=== PATIENT | male | born 1990 | race Two or more races ===

== ENCOUNTER 2018-12-03 16:16 | Emergency (ER) | payer OTHER ==
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
[2018-12-03] MEDS ORDERED: ACETAMINOPHEN 325 MG TABLET PO STA (20:17)
[2018-12-03] MEDS ORDERED: IBUPROFEN 800 MG TABLET PO STA (20:17)
[2018-12-03 20:59] VITALS: BP 128/71
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
== END 2018-12-03 20:59 | disposition home or self-care (01) ==
LOC: ED 16:16
DX: S39.012A Strain of muscle, fascia and tendon of lower back, initial encounter (principal); V43.52XA Car driver injured in collision with other type car in traffic accident, initial encounter; W22.11XA Striking against or struck by driver side automobile airbag, initial encounter; Y92.410 Unspecified street and highway as the place of occurrence of the external cause
CPT/HCPCS: 72100; 99283; A9270

== ENCOUNTER 2020-12-16 19:42 | Emergency (ER) | payer OTHER ==
[2020-12-16 19:55] VITALS: BP 106/66
[2020-12-16] MEDS ORDERED: BACITRACIN ZINC OINT 1 PACKET TOP STA (21:38)
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
== END 2020-12-16 22:41 | disposition home or self-care (01) ==
LOC: ED 19:42
DX: S40.812A Abrasion of left upper arm, initial encounter (principal); S80.212A Abrasion, left knee, initial encounter; S80.211A Abrasion, right knee, initial encounter; W18.30XA Fall on same level, unspecified, initial encounter; Y93.51 Activity, roller skating (inline) and skateboarding
CPT/HCPCS: 99282; A9270